=== PATIENT | male | born 1995 | race Caucasian/White ===

== ENCOUNTER 2019-06-05 23:33 | Emergency (ER) | payer OTHER ==
[~2019-06-05] VITALS: Ht 175.3 cm; Wt 99.8 kg
[2019-06-06 01:00] VITALS: BP 136/82
--- NOTE | 2019-06-06 02:01 | PHYS DOC ---
Past Medical History Past Medical History: Asthma Past Surgical History: Tonsillectomy Alcohol Use: Rarely Drug Use: None Adult General Chief Complaint Chief Complaint: COUGH HPI HPI 24-year-old male with history of asthma presents to the emergency department with complaints of weakness, sore throat 2 days, headache, bodyaches, cough. Patient is been trying [id number] medications without improvement. Nothing makes his symptoms worse, nothing makes his symptoms better. All other ROS negative unless documented in HPI Review of Systems Review of Systems See Above Allergies Allergies Allergies Coded Allergies Type Severity Reaction Last Updated Verified No Known Drug Allergies 06/06/19 No Physical Exam Physical Exam See Above Constitutional: Well developed, well nourished, no acute distress, non-toxic appearance. [] HENT: Normocephalic, atraumatic, bilateral external ears normal, oropharynx moist, mildly irritated, no oral exudates, nose normal. [] Eyes: PERRLA, EOMI, conjunctiva normal, no discharge. [] Neck: Normal range of motion, no tenderness, supple, no stridor. [] Cardiovascular:Heart rate regular rhythm, no murmur [] Lungs & Thorax: Bilateral breath sounds clear to auscultation [] Abdomen: Bowel sounds normal, soft, no tenderness, no masses, no pulsatile masses. [] Skin: Warm, dry, no erythema, no rash. [] Extremities: No tenderness, o edema. [] Neurologic: Alert and oriented X 3, no focal deficits noted. [] Psychologic: Affect normal, judgement normal, mood normal. [] Current Patient Data Vital Signs Vital Signs Date Time Temp Pulse Resp B/P (MAP) Pulse Ox O2 Delivery O2 Flow Rate FiO2 06/06/19 01:00 99.1 91 14 136/82 (100) 99 Room Air 99.1 Lab Values Laboratory Tests Test 06/06/19 01:05 Influenza Type A Antigen Negative (NEGATIVE) Influenza Type B Antigen Negative (NEGATIVE) EKG EKG [] Radiology/Procedures Radiology/Procedures [] Course & Med Decision Making Course & Med Decision Making Pertinent Labs and Imaging studies reviewed. (See chart for details) []24-year-old male with history of asthma presents to the emergency department with complaints of weakness, sore throat 2 days, headache, bodyaches, cough. Patient is been trying [id number] medications without improvement. Nothing makes his symptoms worse, nothing makes his symptoms better. Strep negative for acute infection Recommend follow up as outpatient Symptomatic treatment recommended NO plans for abx at this time Armen Disclaimer Dragon Disclaimer This electronic medical record was generated, in whole or in part, using a voice recognition dictation system. Departure Departure Impression: Primary Impression: Viral syndrome Disposition: HOME, SELF-CARE Condition: STABLE Referrals: NO PCP (PCP) Patient Instructions: Viral Syndrome Additional Instructions: Recommend follow up with PCP 3 - 5 days Return to the ER with worsening symptoms, intractable pain, fever, altered mental status Tylenol/Motrin as needed for pain Continue symptomatic treatment FARIHA SAPP MD Jun 06, 2019 02:01
[2019-06-06 02:03] LABS: INFLUENZA A PATIENT NEGATIVE (NEGATIVE); INFLUENZA B PATIENT NEGATIVE (NEGATIVE)
== END 2019-06-06 02:05 | disposition home or self-care (01) ==
LOC: ER 23:33
DX: B34.9 Viral infection, unspecified (principal); J45.909 Unspecified asthma, uncomplicated; Z90.89 Acquired absence of other organs
CPT/HCPCS: 87070; 87804; 87880; 99284